=== PATIENT | male | born 1990 | race Caucasian/White ===

== ENCOUNTER 2022-07-27 16:40 | Emergency (ER) | payer OTHER ==
[~2022-07-27] VITALS: Ht 177.8 cm; Wt 61.2 kg
[~2022-07-27 16:40] MED LIST: VENTOLIN HFA18 GM INH
[2022-07-28] MEDS ORDERED: VENTOLIN HFA18 GM INH ×2 (00:01→00:02)
== END 2022-07-28 00:15 | disposition home or self-care (01) ==
LOC: ED 16:40
DX: J06.9 Acute upper respiratory infection, unspecified (principal); Z88.0 Allergy status to penicillin; Z20.822 Contact with and (suspected) exposure to COVID-19
CPT/HCPCS: 87502; 99284; U0003